=== PATIENT | female | born 1995 | race Caucasian/White ===

== ENCOUNTER 2019-11-12 21:31 | Emergency (ER) | payer OTHER, SELFPAY ==
[2019-11-12 21:32] VITALS: BP 131/92; PULSE 124; RESP 18; TEMP 36.7; O2SAT 99; BMI 26.5
[2019-11-12 21:52] LABS: Bacteria 0 SEEN /hpf (None Seen); Mucous, Urine 0 SEEN /hpf (<or=2+); Red Blood Cells-Urine 0 SEEN /hpf (0-5); White Blood Cells 0 SEEN /hpf (0-5)
[2019-11-12 21:55] LABS: Color, Urine Yellow (Yellow); Glucose, Dipstick Normal (Normal); Ketone-Dipstick Negative (Negative); Leukocyte Esterase-Dipstick Negative /ul (Negative); Nitrite-Dipstick Negative (Negative); Occult Blood-Urine 150 /ul (Negative); Protein-Dipstick Negative (Negative); Urine Bilirubin Dipstick Negative (Negative); Urine Clarity Clear (Clear); Urine Urobilinogen Normal (Normal); Urine pH 6.5 (5.0 - 8.0)
[2019-11-12 22:03] LABS: Squamous Epithelial Cells - UA 0-5 SEEN /hpf (5-10)
[2019-11-12] MEDS: Ondansetron 4 MG/2 ML Vial IV (22:43)
[2019-11-12] MEDS: Ketorolac 30 MG/ML Syringe IV (22:43)
[2019-11-12] MEDS: 0.9% Normal Saline 1,000 ML 1000 ML IV (22:44)
[2019-11-12] MEDS: dexAMETHasone 10 MG/ML Vial IV (22:44)
[2019-11-12 22:48] LABS: Absolute Lymphocyte Count 1.54 X10^3/uL (0.83-4.51); Absolute Neutrophil Count 15.5 X10^3/uL (2.0-7.7); Basophil# 0.08 X10^3/uL; Basophil% 0.4 % (0-1); Eosinophil# 0.01 X10^3/uL; Eosinophils% 0.1 % (0-5); Hematocrit 42.5 % (37-47); Hemoglobin 14.1 g/dL (12.0-15.0); Lymphocyte # 1.54 X10^3/ul (4.0); Lymphocyte % 8.1 % (19-41); Mean Corp Hgb Conc 33.2 g/dL (32-36); Mean Corpuscular Hgb 30.7 pg (27.0-32.0); Mean Corpuscular Volume 92.4 fL (81-99); Mean Platelet Vol. 10.9 fl (6.2-12.0); Monocyte# 1.91 X10^3/uL; NRBC Flagged by Analyzer 0 % (0-5); Neutrophil # 15.48 X10^3/uL (2.7-7.7); Neutrophil % 80.9 % (47-70); POSITIVE DIFFERENTIAL YES; Platelet Count 304 K/mm3 (150-450); RBC Distribution Width CV 12.3 % (11.6-14.6); RBC Distribution Width SD 42.1 fl (35.1-43.9); White Blood Count 19.1 K/mm3 (4.4-11.0)
[2019-11-12 23:15] LABS: ALB/GLOB Ratio 1.1 RATIO (0.9-2.4); AST(SGOT) 12 U/L (15-37); Alanine Aminotransfer ALT/SGPT 22 U/L (13-56); Albumin, Serum 3.8 g/dL (3.2-5.0); Alkaline Phosphatase 105 U/L (45-117); Anion Gap 6 (5-15); BUN 11 mg/dL (7-18); BUN/Creat Ratio 14.1 RATIO (10-20); Calcium,Total 8.9 mg/dL (8.5-10.1); Chloride 107 mmol/L (98-107); Creatinine, Serum 0.78 mg/dL (0.55-1.02); EST Glomerular Filtration Rate 98 mL/min (>60); Est Glom Filt Rate - Afr Amer 119 mL/min (>60); Estimated Creatinine Clearance 89.48 ml/min; Globulin 3.6 g/dL (2.2-4.2); Glucose 105 mg/dL (74-106); Internal QC Validated? YES +Cl - CLEAR BKGD; Monotest Negative (Negative); Potassium 3.7 mmol/L (3.5-5.1); Protein, Total 7.4 g/dL (6.4-8.2); Sodium Level 138 mmol/L (136-145)
--- NOTE | 2019-11-12 23:15 | ED.VIS.GEN ---
History of Present Illness Chief Complaint: Flank Pain Informant: Patient Onset: Yesterday Context: Gradual Onset Timing: Continuous Current Severity: Moderate Maximum Severity: Moderate Narrative: Patient is a 24-year-old female was otherwise healthy that presents to the emergency department sore throat, scant cough, nausea, vomiting, and right-sided abdominal pain. The patient states she had a similar presentation about a month ago. Her strep was negative. She was not treated with antibiotics. She states it came back today. She a low-grade fever of 100. She states that she gets diffuse abdominal cramping, mostly on the right side. She denies any weight loss or night sweats. She has no history of prior abdominal surgery. Prior similar symptoms: No Recent Illness/Hospitalization: No Past Medical History - Allergies and Home Meds Allergies/Adverse Reactions: Allergies No Known Allergies Allergy (Verified 11/12/19 21:35) Primary Care Physician: Trudy Leal PA [Primary Care Provider] - Prior records reviewed: Yes Past Medical History: None Surgical History: no surgical history Smoking Status: Never smoker Review of Systems General: Denies: Chills, Fever, Sweats Eyes: Denies: Visual changes - bilaterally, Diplopia ENT: Reports: Sore throat. Denies: Rhinorrhea Cardiovascular: Denies: Chest pain, Palpitations Respiratory: Denies: Dyspnea, Cough, Dyspnea on exertion Gastrointestinal: Reports: Abdominal pain, Nausea, Vomiting. Denies: Diarrhea, Melena, Hematochezia Genitourinary: Denies: Dysuria, Hematuria, Frequency Musculoskeletal: Denies: Back pain, Extremity Pain Skin: Denies: Rash, Wounds Neurological: Denies: Headache, Weakness, Numbness Physical Exam Vital Signs/Narrative: Vital Signs Temp Pulse Resp BP Pulse Ox 11/12/19 21:32 98.0 F 124 H 18 131/92 H 99 Inital Vital Signs reviewed: Yes General: Well nourished, Well developed, No Acute Distress Head: Normocephalic, Atraumatic Eyes: Perrl, EOMI ENT: Moist mucous membranes, No rhinorrhea, - - Posterior pharynx has bilateral tonsillar exudate. Uvula midline. No evidence of retropharyngeal or peritonsillar abscess. Neck: Supple, Nontender Cardiovascular: Regular rate, Regular rhythm, No murmurs Respiratory: No distress, CTA bilaterally, Chest nontender Abdomen: Soft, Nontender, Nondistended, Normal bowel sounds Back: Nontender, Normal Inspection Extremities: Nontender, No edema Skin: Normal color, No rash Neurological: Alert, Oriented x3, Cranial nerves II-XII grossly intact, Normal Strength, Normal Sensation Psychological: Normal affect, Normal Mood Diagnostic/Tx/Re-eval Abnormal Lab Results 11/12/19 11/12/19 11/12/19 21:46 22:40 22:40 WBC 19.1 H RBC 4.60 Hgb 14.1 Hct 42.5 MCV 92.4 MCH 30.7 MCHC 33.2 RDW Std Deviation 42.1 RDW Coeff of Lenin 12.3 Plt Count 304 MPV 10.9 Immature Gran % (Auto) 0.500 Neut % (Auto) 80.9 H Lymph % (Auto) 8.1 L [place] % (Auto) 10.0 Eos % (Auto) 0.1 Baso % (Auto) 0.4 Absolute Neuts (auto) 15.5 H Absolute Lymphs (auto) 1.54 Nucleated RBC % 0 Differential Comment @SLIDE SCANNED Diff Path Review May foll Platelet Estimate ADEQUATE RBC Morphology N CHROM Anisocytosis RARE Macrocytosis RARE Sodium 138 Potassium 3.7 Chloride 107 Carbon Dioxide 25.0 Anion Gap 6 BUN 11 Creatinine 0.78 Estim Creat Clear Calc 89.48 Est GFR (MDRD) Af Amer 119 Est GFR (MDRD) Non-Af 98 BUN/Creatinine Ratio 14.1 Glucose 105 Calcium 8.9 Total Bilirubin 0.20 AST 12 L ALT 22 Alkaline Phosphatase 105 Total Protein 7.4 Albumin 3.8 Globulin 3.6 Albumin/Globulin Ratio 1.1 Urine Color Yellow Urine Clarity Clear Urine pH 6.5 Ur Specific Meredith 1.010 Urine Protein Negative Urine Glucose (UA) Normal Urine Ketones Negative Urine Occult Blood 150 H Urine Nitrite Negative Urine Bilirubin Negative Urine Urobilinogen Normal Ur Leukocyte Esterase Negative Urine RBC 0 SEEN Urine WBC 0 SEEN Ur Squamous Epith Cells 0-5 SEEN Urine Bacteria 0 SEEN Urine Mucus 0 SEEN Monoscreen 11/12/19 22:40 WBC RBC Hgb Hct MCV MCH MCHC RDW Std Deviation RDW Coeff of Lenin Plt Count MPV Immature Gran % (Auto) Neut % (Auto) Lymph % (Auto) [place] % (Auto) Eos % (Auto) Baso % (Auto) Absolute Neuts (auto) Absolute Lymphs (auto) Nucleated RBC % Differential Comment Diff Path Review Platelet Estimate RBC Morphology Anisocytosis Macrocytosis Sodium Potassium Chloride Carbon Dioxide Anion Gap BUN Creatinine Estim Creat Clear Calc Est GFR (MDRD) Af Amer Est GFR (MDRD) Non-Af BUN/Creatinine Ratio Glucose Calcium Total Bilirubin AST ALT Alkaline Phosphatase Total Protein Albumin Globulin Albumin/Globulin Ratio Urine Color Urine Clarity Urine pH Ur Specific Meredith Urine Protein Urine Glucose (UA) Urine Ketones Urine Occult Blood Urine Nitrite Urine Bilirubin Urine Urobilinogen Ur Leukocyte Esterase Urine RBC Urine WBC Ur Squamous Epith Cells Urine Bacteria Urine Mucus Monoscreen Negative - Medical Decision Making Patient presents with sore throat, chills, nausea, and some cramping abdominal pain. Posterior oropharynx shows exudate on both tonsils. There is no evidence of retropharyngeal or peritonsillar abscess. She had similar presentation about a month ago which resolved on its own. I did obtain metabolic work-up. She does have leukocytosis which I feel is likely reactive. She has no trismus or stridor. Liver functions were normal. [place] test was negative. Urine shows no infection. At this point, given exudative pharyngitis, I do feel that antibiotic treatment would be most appropriate. Patient will be continued on Decadron and Augmentin. She will use anti-inflammatories. She was counseled on concerning symptoms and reasons to return. Again, I have no suspicion for abscess. I do feel that she is safe for outpatient follow-up. Impression 1. Exudative pharyngitis 2. Abdominal cramping ED Disposition - Plan for ED Patient: Disposition: Home or Assisted Living Instructions: ED Pharyngitis Strep Confirmed Prescriptions: Amox/Clavulanate Tablet [Augmentin Tablet] 875 mg PO Q12H #20 tab Prescription Printed Dexamethasone [Decadron] 4 mg PO BIDCM #6 tab Prescription Printed Referrals: Trudy Leal PA [Primary Care Provider] -
[2019-11-12 23:19] LABS: Differential Indicated SCAN CRITERIA MET
[2019-11-12 23:23] LABS: Anisocytosis RARE; Differential Comment @SLIDE SCANNED; Macrocytosis RARE; Platelet Estimate ADEQUATE (ADEQ); Red Cell Morphology N CHROM NORMAL (NORM C&C)
[2019-11-12 23:54] VITALS: RESP 16
[2019-11-12] MEDS: Amox/Clavulanate 875 MG Tablet PO (23:59)
[2019-11-13 12:27] LABS: Pathologist Review Reviewed
== END 2019-11-13 00:01 | disposition home or self-care (01) ==
LOC: ED 22:53
PROVIDERS: Emergency Provider Emergency Medicine; PCP Physician Assistant
DX: J02.9 Acute pharyngitis, unspecified (principal); R10.9 Unspecified abdominal pain
CPT/HCPCS: 80053; 81001; 85025; 86308; 96374; 96375; 99283; J7030; A4216; J2405

== ENCOUNTER → 2020-01-05 17:31 | Outpatient (CLI) | payer OTHER, SELFPAY | PROVIDERS: PCP Physician Assistant; Referring Provider Otolaryngology; Visit Provider Otolaryngology | DX: Z11.59 Encounter for screening for other viral diseases (principal) | CPT/HCPCS: 87635; C9803; U0003 ==

== ENCOUNTER → 2020-01-11 15:24 | Outpatient (CLI) | payer OTHER, SELFPAY ==
--- NOTE | 2020-01-11 | TONS_PTH ---
PATIENT: KATHY HOOVER LOC: [facility] U#:[id number] AGE/SX: 29/ ROOM: RE01/11/[address]: Dr. Evin Jacobson MD : 1995 BED: DIS: SPEC #: [id number] RECD: 01/11/20 15:09 STATUS: ADEOLA MANUEL #: [id number] MIKE: 01/11/20 00:[address]: Evin Jacobson DEPT: SURGICAL PATHOLOGY RECD BY: Shawn Jose ENTERED: 01/12/20 08:49 SP TYPE: TONSILS OTHR DR: ANGIE Rebollar [facility] Tissues: Tonsil, NOS Procedures: Surgery Specimen Level III HEADER OPERATION: Tonsillectomy PRE-OP DIAGNOSIS: Chronic tonsillitis; tonsillar hypertrophy TISSUE SUBMITTED: Tonsils (right pinned) MICROSCOPIC DIAGNOSIS Right and left tonsils, bilateral tonsillectomies: Benign lymphoid hyperplasia, consistent with chronic tonsillitis. Organisms consistent with actinomyces. AM:shira 01/13/20 MICROSCOPIC DESCRIPTION Slides are reviewed. GROSS DESCRIPTION Received is one container labeled with the patient's name and designated tonsils - pin on right are two tonsils that in aggregate weigh 15.7 gm. The right tonsil has a pin on it and measures 3 x 2.5 x 2 cm. The left tonsil measures 4 x 2.5 x 2 cm. Both tonsils are similar in appearance. The external surfaces are pink-day, smooth, glistening and somewhat lobulated. Focally they are hemorrhagic, granular and bear cautery artifact. Serial cross sections through the tonsils reveal normal tonsillar architecture. Sections are submitted in two cassettes as follows: 1 - right tonsil, 2 - left tonsil. / SJ:shira 01/12/20 TC:5 CPT: 10041 x2
== END ==
PROVIDERS: PCP Physician Assistant; Visit Provider Otolaryngology
DX: J35.01 Chronic tonsillitis (principal)
CPT/HCPCS: 88304

== ENCOUNTER → 2022-04-27 | Outpatient (CLI) | payer OTHER, SELFPAY ==
--- NOTE | 2022-04-27 06:44 | MRI_ITS ---
STUDY: EXAMINATION - MRV BRAIN WITHOUT CONTRAST REASON FOR EXAM: Female, 26 years old. JUGULAR VEIN STENOSIS TECHNIQUE: 3D [id number] (TOF) imaging was performed in a 1.5 jesus MRI scanner. COMPARISON: None. FINDINGS: Normal flow within the superior sagittal sinus. Normal flow within the superficial cortical veins. Normal flow within the paired internal cerebral veins, vein of Mariano and straight sinus. Normal flow within the right transverse sinus, right sigmoid sinus, dominant right jugular bulb and dominant right internal jugular vein. Normal but markedly hypoplastic left transverse sinus, markedly hypoplastic left sigmoid sinus and markedly hypoplastic left jugular bulb and left internal jugular vein. MRI/MRV Head Without Contrast IMPRESSION: 1. 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 This is a developmental variation of normal. Normal dominant and widely patent right transverse sinus, right sigmoid sinus, right jugular bulb and right internal jugular vein. 2. Normal cerebral cortical veins, deep cerebral veins, superior sagittal sinus, vein of Mariano and straight sinus. Electronically Signed: Ortiz Roy MD at 11:02 EDT ,
--- NOTE | 2022-04-27 06:44 | MRI_ITS ---
EXAM: MR HEAD WITHOUT AND WITH INTRAVENOUS CONTRAST CLINICAL INDICATION: MIGRAINE HEADACHES TECHNIQUE: Multiplanar and multisequence MR images of the brain were obtained without and with intravenous contrast. This report was created using [employer] report generation technology. CONTRAST: 20 mL of IV Clariscan. COMPARISON: None. FINDINGS: BRAIN AND EXTRA-AXIAL SPACES: Following IV contrast administration, there are no abnormally enhancing lesions intra-axially and extra-axially. No intra- or extra-axial hemorrhage. No evidence of acute infarct. No intracranial mass or mass effect. There is preservation of the raya/white matter interface. Posterior fossa structures are unremarkable. Ventricles are appropriate for age. No hydrocephalus. Basal cisterns are patent. No focal signal abnormalities throughout the brain parenchyma in all pulse sequences. SELLA: Unremarkable. Normal sella turcica, pituitary gland, infundibular stalk, optic chiasm and hypothalamus. AUDITORY SYSTEM: Unremarkable. The internal auditory canals are patent. BONES/JOINTS: Unremarkable. No discrete lytic or blastic abnormalities. SINUSES: A couple of small nonenhancing mucus retention cysts in the left retropharyngeal space at the nasopharyngeal level. MASTOID AIR CELLS: Unremarkable as visualized. Clear. ORBITS: Unremarkable as visualized. Both globes, extraocular muscles, optic nerves and retrobulbar fat appear unremarkable. VASCULATURE: Unremarkable as visualized. Normal flow voids in the major intracranial circulation. MRI/Brain W/WO Contrast IMPRESSION: 1. 2 small benign nonenhancing mucus retention cysts in the left nasopharynx. 2. Normal MRI brain with and without contrast. Electronically Signed: Ortiz Roy MD at 10:56 EDT ,
== END | disposition home or self-care (01) ==
PROVIDERS: PCP Physician Assistant
DX: I87.1 Compression of vein (principal); G43.909 Migraine, unspecified, not intractable, without status migrainosus
CPT/HCPCS: 70544; 70553; A9575